=== PATIENT | female | born 1945 ===

== ENCOUNTER 2021-01-10 15:12 | Emergency (ER) | payer MEDICARE ==
[~2021-01-10 15:12] MED LIST: AMIODARONE 150 MG/3 ML INJ IV ONE; EPINEPHrine 1 MG/10 ML SYRINGE ONE; SODIUM BICARB 8.4% 50 MEQ/50 ML SYRINGE IV ONE
--- NOTE | 2021-01-10 16:01 | Emergency Department Report ---
ED CPR HPI - General Chief Complaint: Cardiac Arrest/CPR Stated Complaint: CARDIAC ARREST Time Seen by Provider: 01/10/21 15:56 Source: EMS (Verbal report received from emergency medical services. EMS documentation not available at time of chart dictation ), RN notes reviewed Mode of arrival: Stretcher Limitations: Altered Mental Status, Physical Limitation - History of Present Illness Initial Comments: The patient was evaluated in the emergency department for symptoms described in the history of present illness. He/she was evaluated in the context of the global COVID-19 pandemic, which necessitated consideration that the patient might be at risk for infection with the virus that causes COVID-19. Institutional protocols and algorithms that pertain to the evaluation of patients at risk for COVID-19 are in a state of rapid change based on information released by regulatory bodies including the CDC and federal and state organizations. These policies and algorithms were followed during the patient's care in the emergency department. Please note that these policies, procedures and recommendations changed on a rapid basis. Verbal report received from emergency medical services. EMS documentation not available at time of chart dictation The patient is a 75-year-old female. She is not known to myself previously. The patient reportedly has a past medical history of CHF, diabetes, hypertension, pneumonia, encephalopathy. The patient was apparently recently hospitalized at [facility]. The patient reportedly is also recently hospitalized at [facility]. She is brought to the hospital by emergency medical services as an [id number] nontraumatic cardiac arrest. Patient arrives intubated, receiving CPR, with a GCS of 3T. History is entirely obtained from EMS. EMS tells me that patient was found collapsed on a toilet bowl. It is not known how long she was collapsed for. EMS tells me that bystanders did not initiate CPR. EMS states that upon their arrival, the patient was not breathing and pulseless. The patient was intubated with a 6 oh endotracheal tube, right lower extremity IO access was established, high-quality CPR was initiated. EMS reports initial rhythm is pulseless electrical activity, followed by asystole, followed by pulseless electrical activity, followed by asystole, followed by ventricular tachycardia which they shocked, then return of spontaneous circulation, for approximately 2 minutes. The patient lost pulses again upon arrival to this emergency room, and her presenting rhythm here is pulseless electrical activity. EMS reports normal Accu-Chek in the field. Here in the emergency room, patient continues to receive high-quality CPR, and standard ACLS interventions. Her endotracheal tube is verified with video laryngoscopy, and she continues to receive high-quality CPR. Throughout her stay in the emergency room, the patient lost and gained pulses 3- 4 times. However, the patient has remained persistently, ptosis, with no signs of pupillary response, with a GCS of 3. In addition, she has obvious blood coming out of her endotracheal tube. Contacted family/next of kin, Ms. Kassi Kim. With charge nurse Adelina Kulkarni present as a witness, we discussed the patient's current condition, and discussed goals of care and advanced directives. Ms. Kim has advised us that she does not want to pursue aggressive/invasive medical care, CPR, invasive procedures, or advanced diagnostics. She requested palliative measures. Shortly thereafter, the patient . MD Complaint: found unresponsive Initial Findings in the Field: no pulse, PEA Treatments Prior to Arrival: intubation, chest compressions, epinephrine mgs #, other (EMS reports normal Accu-Chek in the field) ED Review of Systems ROS: Stated complaint: CARDIAC ARREST Other details as noted in HPI Comment: Unobtainable due to pts medical conditions ED Physical Exam - General Limitations: Altered Mental Status, Physical Limitation General appearance: obtunded - Head Head exam: Present: atraumatic, normocephalic - Eye Eye exam: Present: normal appearance, other (Pupils midpoint and do not react to light) - ENT ENT exam: Present: normal exam, mucous membranes moist, normal external ear exam (Endotracheal tube noted in the oropharynx) - Neck Neck exam: Present: normal inspection - Respiratory Respiratory exam: Present: other ([id number] ventilation) - Cardiovascular Cardiovascular Exam: Present: other (Intermittent thready pulses appreciated) - GI/Abdominal GI/Abdominal exam: Present: distended - Rectal Rectal exam: Present: normal inspection - Extremities Exam Extremities exam: Absent: normal inspection (Extremities are pale. IO noted in the right lower extremity) - Back Exam Back exam: Present: normal inspection. Absent: tenderness, paraspinal tenderness - Neurological Exam Neurological exam: Present: altered (Nonverbal, GCS of 3T) - Skin Skin exam: Present: cyanosis - Procedure Description Procedures done: After first return of spontaneous circulation, video laryngoscopy is performed with a curved S4 video laryngoscopy blade, endotracheal tube position is confirmed through direct visualization - Central Line Placement Left Femoral Consent Obtained: emergent situation Time Out Performed: No Patient Placed on Monitor/Pulse Ox: Yes MD Prep: mask, gown, gloves Central Line Prep: Povidone-Iodine 1% Ultrasound Used for Placement: Yes Central Line Lumen Inserted: triple Reason for Insertion: CV Pressure Monitoring Bloods Obtained for Lab: No Central Line Position: good blood return, all ports aspirated, flus, sutured in place with 2-0 Dressing Applied: Tegaderm Patient Tolerated Procedure: well Complications: none Additional Comments: Patient is emergently and administratively consented for emergent crash nonsterile central line, given that she has initial return of spontaneous circulation, and her only access is an IO. The left groin is prepped with Betadine, and a nonsterile central line is emergently placed with 1 attempt using typical Seldinger technique. ED Medical Decision Making - Medical Decision Making Differential diagnosis, including but not limited to: Myocardial infarction, pulmonary embolism, electrolyte derangement, Assessment and plan: 75-year-old female status post out of hospital cardiac arrest, with prolonged downtime, Pulseless for greater than 30 minutes, who initially had return of spontaneous circulation, but unfortunately, could not retain pulses. Extensive discussion had with next of kin . Kassi Kim, who requested de-escalation of care, and comfort measures. The patient shortly thereafter. Critical Care Time: Yes Critical care time in (mins) excluding proc time.: 35 Critical care attestation.: If time is entered above; I have spent that time in minutes in the direct care of this critically ill patient, excluding procedure time. ED Disposition Clinical Impression: Cardiac arrest Disposition: 20 Is pt being admited?: No Does the pt Need Aspirin: No Condition: Undetermined
--- NOTE | 2021-01-11 13:33 | Electrocardiograph Report ---
[facility] Test Date: 2021-01-10 Test Time: 15:48:26 Pat Name: MEGAN TUTTLE Department: Room: Gender: F Drug Abuse Treatment Specialist: FERMÍN : 1945 Requested By: CAMILA GRANADO Order Number: [id number] Reading MD: Lamar Field Measurements Intervals [place] Rate: 62 P: [place]: QRS: 82 QRSD: 101 T: -72 QT: 418 QTc: 425 Interpretive Statements Agonal rhythm EKG with idioventricular complexes No previous ECG available for comparison Electronically Signed On 01-11-2021 13:32:51 EDT by Lamar Field
== END 2021-01-10 17:56 ==
LOC: ED 15:12
DX: I46.9 Cardiac arrest, cause unspecified (principal)
CPT/HCPCS: 36556; 92950; 93005; 99291; J0171; J0282